=== PATIENT | female | born 1955 | race Caucasian/White ===

== ENCOUNTER 2017-11-22 08:59 | Outpatient (CLI) | payer BC | END 2017-11-22 09:00 | disposition home or self-care (01) | LOC: BICMAMMO 08:59 | PROVIDERS: ATTEND Family Medicine | DX: Z12.31 Encounter for screening mammogram for malignant neoplasm of breast (principal); Z13.820 Encounter for screening for osteoporosis; R92.1 Mammographic calcification found on diagnostic imaging of breast | CPT/HCPCS: 77063; 77067; 77080 ==

== ENCOUNTER 2018-03-25 18:45 | Emergency (ER) | payer BC ==
[2018-03-25] MEDS ORDERED: Prochlorperazine 10 MG/2 ML VIAL ONE (19:37)
[2018-03-25] MEDS ORDERED: Oseltamivir 75 MG CAP ONE (19:53)
[2018-03-25] MEDS ORDERED: Ketorolac Tromethamine 30 MG/ML VIAL ONE (20:22)
[2018-03-25] MEDS ORDERED: Ondansetron ODT 4 MG TAB ONE (20:43)
== END 2018-03-25 20:52 | disposition home or self-care (01) ==
LOC: SCSER 18:45
DX: J11.1 Influenza due to unidentified influenza virus with other respiratory manifestations (principal); M06.9 Rheumatoid arthritis, unspecified; Z79.899 Other long term (current) drug therapy
CPT/HCPCS: 87081; 87430; 87804; 96372; J0780; J1885; Q0162

== ENCOUNTER 2018-12-26 13:29 | Outpatient (CLI) | payer BC ==
--- NOTE | 2018-12-26 14:35 | MMO ---
Bilateral MAMMO Bilat Screen [facility]. CLINICAL HISTORY: Patient is 63 years old and is seen for screening. The patient has no family history of breast cancer. The patient has no personal history of cancer. VIEWS: The views performed were: bilateral craniocaudal with tomosynthesis and bilateral mediolateral oblique with tomosynthesis. FILMS COMPARED: The present examination has been compared to prior imaging studies performed at [facility] on 05/18/2013, 06/03/2014, 12/12/2015 and 11/22/2017. This study has been interpreted with the assistance of computer-aided detection. MAMMOGRAM FINDINGS: The breasts are heterogeneously dense, which could obscure a lesion on mammography. There are benign appearing calcifications seen in both breasts. There are no suspicious masses, suspicious calcifications, or new areas of architectural distortion. IMPRESSION: THERE IS NO MAMMOGRAPHIC EVIDENCE OF MALIGNANCY. A ROUTINE FOLLOW-UP MAMMOGRAM IN 1 YEAR IS RECOMMENDED. THE RESULTS OF THIS EXAM WERE SENT TO THE PATIENT. ACR BI-RADS Category 2 - Benign finding MAMMOGRAPHY NOTE: 1. A negative mammogram report should not delay a biopsy if a dominant of clinically suspicious mass is present. 2. Approximately 10% to 15% of breast cancers are not detected by mammography. 3. Adenosis and dense breasts may obscure an underlying neoplasm. Reported by: PIEDAD DAVENPORT MD Electonically Signed: [id number]
== END 2018-12-26 13:30 | disposition home or self-care (01) ==
LOC: BICMAMMO 13:29
PROVIDERS: ATTEND Family Medicine
DX: Z12.31 Encounter for screening mammogram for malignant neoplasm of breast (principal)
CPT/HCPCS: 77063; 77067

== ENCOUNTER 2019-11-16 09:57 | Inpatient (IN) | payer BC, OTHER ==
[2019-11-16] MEDS ORDERED: Morphine 4 MG/ML VIAL ONE ×2 (10:51→12:53)
[2019-11-16] MEDS ORDERED: Ondansetron PF 4 MG/2 ML Vial ONE (10:51)
[2019-11-16 11:05] LABS: #Eosinphils 0.1 thou/uL (0.0-0.7); #Lymphocytes 1.6 thou/uL (1.20-3.40); #Monocytes 1.9 thou/uL (0.11-0.59); #Neutrophils 12.9 thou/uL (1.40-6.50); %Basophils 0.2 % (0.0-1.0); %Eosinophils 0.6 % (0.0-10.0); %Lymphocytes 9.5 % (21.0-51.0); %Monocytes 11.7 % (0.0-10.0); %Neutrophils 78.1 % (42.0-75.0); Mean Corpuscular HGB CONC 31.4 g/dL (32.0-36.0); Mean Corpuscular Hemoglobin 28.7 pg (27.0-31.0); Mean Corpuscular Volume 91.5 fL (78.0-98.0); Mean Platelet Volume 8.8 fL (7.4-10.4); Platelet Count 338 thou/uL (130-400); RBC Distribution Width 12.9 % (11.5-14.5); Red Blood Cell (RBC) Count 4.16 mill/uL (4.20-5.40); White Blood Cell (WBC) Count 16.5 thou/uL (4.8-10.8)
--- NOTE | 2019-11-16 11:26 | CT ---
CT ABDOMEN PELVIS WITH IV CONTRAST: HISTORY: left lower quadrant abdominal pain COMPARISON: None FINDINGS: The lung bases are unremarkable. A small hiatal hernia is present. There is a 6 mm low-density lesion in the left lobe of the liver and a punctate low-density lesion in the right lobe of the liver, too small to characterize, likely cysts. No calcified gallstones are seen. The spleen, pancreas, adre nal glands and kidneys are normal. No free air, free fluid or lymphadenopathy seen in the abdomen or pelvis. There is colonic diverticul osis. There is thickening of a segment of the colon in the left lower quadrant with pericolonic inflammatory changes. No abnormally loculated fluid collection is seen to suggest abscess formation. There are fluid-filled small bowel loops which are prominent but not abnormally dilated. There are va scular calcifications without evidence of aneurysmal dilatation of the abdominal aorta. There are degenerative changes in the spine. IMPRESSION: Colonic Diverticulitis in the left lower quadrant without evidence of abscess formation
[2019-11-16 11:36] LABS: ALT (SGPT) 10 U/L (8-55); AST (SGOT) 13 U/L (5-34); Albumin 4.3 g/dL (3.4-4.8); Alkaline Phosphatase 64 U/L (40-110); Anion Gap 17 mmol/L (10-20); BUN (Urea Nitrogen) 6 mg/dL (9.8-20.1); Bilirubin, Total 0.6 mg/dL (0.2-1.2); Calc. Creatinine Clearance 0 mL/min (70-130); Calcium 9.5 mg/dL (7.8-10.44); Carbon Dioxide 22 mmol/L (23-31); Chloride 100 mmol/L (98-107); Estimated GFR-MDRD 85; Globulin 3.4 g/dL (2.4-3.5); Glucose 89 mg/dL (80-115); Lipase 37 U/L (8-78); Potassium 4.1 mmol/L (3.5-5.1); Protein, Total 7.7 g/dL (6.0-8.3); Sodium 135 mmol/L (136-145)
[2019-11-16 11:40] LABS: Bilirubin Negative (Negative); Blood, Urine Negative (Negative); Clarity Clear (Clear); Glucose, Urine (Dipstick) Normal (Negative); Ketone, Urine Negative (Negative); Leukocyte Negative Leu/uL (Negative); Nitrite Negative (Negative); Protein, Urine (Dipstick) 10 mg/dL (Neg-Trace); Specific Gravity, Urine 1.021 (1.002-1.036); Urobilinogen Normal mg/dL (Less than 2); pH, Urine 7.5 (5.0-9.0)
[2019-11-16] MEDS ORDERED: Piperacillin/Tazobactam 4.5 GM VIAL ONE (12:43)
--- NOTE | 2019-11-16 13:26 | PDOC.HHP ---
Hospitalist HPI - History of Present Illness Abdominal pain History of Present Illness: PCP: Dr. Li The patient is a 64-year-old female with a past medical history significant for diverticulitis and rheumatoid arthritis that presents to the ER for the above complaint. The patient reports having abdominal pain x 2-3 weeks, located to her left lower quadrant, described as cramping, exacerbated with eating and relieved by nothing. First, she went to [facility] ER, had general labs, which she says were unremarkable. Since her symptoms were consistent with previous diverticulits episodes, she was discharged on Cipro and Flagyl. Immediately after leaving [facility] ER, she went over to [facility] ER because she wanted a CT scan of her abdomen. She says it showed she had diverticulitis. She says she took entire course of ciprofloxacin a flagyl without resolution of her symptoms. Therefore, she went to see her dyed yarn operator, Dr. Yang. He started her on amoxicillin. She completed the entire course of amoxicillin over the past week, again without resolution of symptoms. Today, she presents for worsening lower left abdominal pain with associated nausea and diarrhea. She denies any hematochezia. She reports chills, but denies fever. She has no chest pain, heart palpitations, shortness of breath. She has no other complaints at this time. ED Course: VITAL SIGNS SatNov 16, 2019 09:58 RAMON Burr Denna Temp: 98.6 (Oral), Time: 11/16/2019 09:58. VITAL SIGNS SatNov 16, 2019 10:00 RAMON Burr Denna BP: 119/72, Pulse: 79, Resp: 16, Pain: 8, O2 sat: 98 on (Room Air), Time: 2019 10:00. VITAL SIGNS SatNov 16, 2019 11:27 RAMON Carrasquillo Cassie Pain: 3, Time: 11/16/2019 11:27. VITAL SIGNS SatNov 16, 2019 11:27 RAMON Carrasquillo Cassie BP: 122/73, Pulse: 85, Resp: 16, Pain: 3, O2 sat: 99 on (Room Air), Time: 2019 11:27. VITAL SIGNS SatNov 16, 2019 12:07 RAMON Carrasquillo Cassie BP: 126/74, Pulse: 78, Resp: 16 (Non-Labored), Pain: 5, O2 sat: 97 on (Room Air) , Time: 11/16/2019 12:07. Medication administration: morphine injection 4 mg IV Push Given 12:58 11/16/2019 Zosyn 4.5 g IV Piggy Back Given 12:50 11/16/2019 morphine injection 4 mg IV Push Given 11:04 11/16/2019 ondansetron HCl intravenous 4 mg IV Push Given 10:59 11/16/2019 sodium chloride 0.9 % intravenous 1 L IV Fluid Infusion Given 10:56 11/16/2019 Hospitalist ROS - Review of Systems Constitutional: reports: chills. denies: fever Respiratory: denies: cough, shortness of breath, hemoptysis Cardiovascular: denies: chest pain, palpitations, edema Gastrointestinal: reports: nausea, vomiting (X1 episode, when initiating Flagyl and Cipro.), abdominal pain (Lower left quadrant), diarrhea (Denies hematochezia ). denies: hematochezia Genitourinary: denies: dysuria, frequency, hematuria Neurological: denies: weakness, confusion All other systems reviewed; all pertinent +/- noted in HPI/Subj - Medication Medications: leflunomide SatNov 16, 2019 10:04 RAMON Carrasquillo Cassie tablet : Strength - 20 mg : ORAL Patient Dose: 20 mg once a day. Plaquenil SatNov 16, 2019 10:05 RAMON Carrasquillo Cassie tablet : Strength - 200 mg : ORAL Patient Dose: 200 mg Oral ONCE.one on the first day and two tabs the next day ( EOD dosing). Carlos Enrique SatNov 16, 2019 10:06 RAMON Carrasquillo Cassie tablet,delayed release (DR/EC) : Strength - 5 mg : ORAL Patient Dose: 5 mg Oral once a day (in the morning). Tylenol Arthritis SatNov 16, 2019 10:06 RAMON Carrasquillo Cassie tablet extended release : Strength - 650 mg : ORAL Patient Dose: 2-4 tab(s).2 in the morning and 2 in the afternoon. Allergies: NKDA Hospitalist History - Past Medical History Source: patient, RN notes reviewed Other Medical History: MEDICAL HISTORY Notes: RA. Diverticulitis. Reviewed with patient on 11/16/19. FEMALE SURGICAL HISTORY APPY. Reviewed with patient on 11/16/19. PSYCHIATRIC HISTORY No previous psychiatric history. Reviewed with patient on 11/16/19. SOCIAL HISTORY Patient denies alcohol use, Patient denies drug use, Patient has no smoking history. Lives with her at home. She is retired. She is fully independent. Reviewed with patient on 11/16/19. FAMILY HISTORY: Contributory for colon cancer, rheumatoid arthritis. - Exam General Appearance: NAD, awake alert Eye: anicteric sclera ENT: normocephalic atraumatic Neck: supple, symmetric Heart: RRR, no murmur, no gallops, no rubs, normal peripheral pulses Respiratory: CTAB, no wheezes, no rales, no ronchi, normal chest expansion, no tachypnea Gastrointestinal: soft, no bruit, no guarding, no rigidity (No rebound), tender to palpation (Mild to left lower quadrant). negative: normal bowel sounds ( Hyperactive bowel sounds throughout) Extremities: no edema Skin: no rashes Neurological: normal sensation to touch, no weakness, no focal deficits, no new deficit Musculoskeletal: normal tone, normal strength Psychiatric: normal affect, A&O x 3 Hospitalist Results - Labs Result Diagrams: 11/16/19 10:28 11/16/19 10:28 Lab results: WBC 16.5 thou/uL (4.8-10.8) H 11/16/19 10:28 Hgb 12.0 g/dL (12.0-16.0) 11/16/19 10:28 Hct 38.1 % (36.0-47.0) 11/16/19 10:28 MCV 91.5 fL (78.0-98.0) 11/16/19 10:28 Plt Count 338 thou/uL (130-400) 11/16/19 10:28 Neutrophils % 78.1 % (42.0-75.0) H 11/16/19 10:28 Sodium 135 mmol/L (136-145) L 11/16/19 10:28 Potassium 4.1 mmol/L (3.5-5.1) 11/16/19 10:28 Chloride 100 mmol/L (98-107) 11/16/19 10:28 Carbon Dioxide 22 mmol/L (23-31) L 11/16/19 10:28 BUN 6 mg/dL (9.8-20.1) L 11/16/19 10:28 Creatinine 0.69 mg/dL (0.6-1.1) 11/16/19 10:28 Glucose 89 mg/dL (80-115) 11/16/19 10:28 Calcium 9.5 mg/dL (7.8-10.44) 11/16/19 10:28 Total Bilirubin 0.6 mg/dL (0.2-1.2) 11/16/19 10:28 AST 13 U/L (5-34) 11/16/19 10:28 ALT 10 U/L (8-55) 11/16/19 10:28 Alkaline Phosphatase 64 U/L (40-110) 11/16/19 10:28 Serum Total Protein 7.7 g/dL (6.0-8.3) 11/16/19 10:28 Albumin 4.3 g/dL (3.4-4.8) 11/16/19 10:28 Lipase 37 U/L (8-78) 11/16/19 10:28 Urine Ketones Negative mg/dL (Negative) 11/16/19 10:55 Urine Blood Negative (Negative) 11/16/19 10:55 Urine Nitrite Negative (Negative) 11/16/19 10:55 Ur Leukocyte Esterase Negative Reed/uL (Negative) 11/16/19 10:55 - Radiology Interpretation CT scan - abdomen Status: report reviewed by me Additional Comment: Colonic Diverticulitis in the left lower quadrant without evidence of abscess formation. Hospitalist H&P A/P - Problem (1) Diverticulitis Code(s): K57.92 - DVTRCLI OF INTEST, PART UNSP, W/O PERF OR ABSCESS W/O BLEED Status: Acute (2) Rheumatoid arthritis Code(s): M06.9 - RHEUMATOID ARTHRITIS, UNSPECIFIED Status: Acute - Plan Plan: 64/F with past medical history of diverticulitis and rheumatoid arthritis presents for diverticulitis and failure on outpatient oral antibiotics. We will admit to medical, inpatient status. Expected length of stay greater than 2 [address] #Diverticulitis CT abdomen pelvis positive colonic diverticulitis of the left lower quadrant without evidence of abscess formation. WBC 16.5, stable vital signs, afebrileno concern for sepsis. Continue Zosyn IV piggyback Consult GI and dietary Clear liquid diet advance as tolerated IV fluids, analgesics, antiemetics #Rheumatoid arthritis Appears stable. Hold home dose of leflunomide per patient request. Restart home Plaquenil every other day dosing. Restart home Carlos Enrique (prednisone) nightly. Restart home Tylenol arthritis twice daily dosing. Lovenox for DVT prophylaxis. Protonix for GI prophylaxis. Full code. AUBREY is her Rene Florence at [phone]. Discussed case with Dr. Hobbs.
[2019-11-16] MEDS ORDERED: Ondansetron PF 4 MG/2 ML Vial IVP PRN (13:31)
[2019-11-16] MEDS ORDERED: Ondansetron ODT 4 MG TAB PO PRN (13:31)
[2019-11-16] MEDS ORDERED: Acetaminophen 325 MG TAB PO PRN (13:31)
[2019-11-16] MEDS ORDERED: Morphine 4 MG/ML VIAL SLOW IVP PRN (13:36)
[2019-11-16] MEDS ORDERED: Pantoprazole 40 MG VIAL IVP SCH (13:45)
[2019-11-16] MEDS: Piperacillin/Tazobactam 4.5 GM in Sodium Chloride 0.9% 100 ML IVPB SCH ×2 (15:13→20:40)
[2019-11-16] MEDS: Sodium Chloride 0.9% 1,000 ML IV SCH (15:36)
[2019-11-16] MEDS: Saccharomyces boulardii 250 MG CAP PO SCH (20:38)
[2019-11-16] MEDS: Hydroxychloroquine Sulfate 200 MG TAB PO SCH (20:38)
[2019-11-16] MEDS: predniSONE 5 MG TAB PO SCH (20:38)
[2019-11-16] MEDS: Acetaminophen ER (8hr) 650 MG TAB PO SCH (20:52)
--- NOTE | 2019-11-17 00:52 | CON ---
DATE OF CONSULTATION: 11/16/2019 CHIEF COMPLAINT: Abdominal pain. HISTORY OF PRESENT ILLNESS: Ms. Florence is a 64-year-old woman who presents back to the emergency room with abdominal pain. She has had diverticulitis 3or 4 times over the years with 5-7 years between episodes. She has had to go to the hospital a couple of times to get these under control. Two weeks ago, she had onset of diarrhea and some left lower quadrant abdominal pain. Her friend that she was with also had some similar diarrhea and abdominal cramping. She thought she was just getting a stomach bug at first. Her pain intensified, however, so she went on to the Urgent Care and was started on ciprofloxacin and metronidazole for suspected diverticulitis and then she went to the [facility] ER at that same time. She had a CT scan performed that reportedly confirmed the diagnosis of diverticulitis. She completed the seven-day course of ciprofloxacin and metronidazole, but had a lot of trouble taking the antibiotics due to nausea. She did finish them all and saw Dr. Yang in the office at the end of her antibiotic course and due to persistent symptoms and intolerance of the ciprofloxacin and metronidazole, she was started on Augmentin. She was given a 14-day course of Augmentin, however, only a week into that course, her pain seems to be getting worse rather than better and she came on the emergency room for further care. CT scan was repeated today and again evidence of diverticulitis is seen with an inflammatory changes and thickening of sigmoid colon in the left lower quadrant. She has not had fever, however, white blood cell count was found to be elevated. She had a stool culture back on 11/10/2019, which was normal. Campylobacter and shiga toxins were negative. C. diff antigen and toxins were negative. Ova and parasites were negative. PAST MEDICAL HISTORY: Recurrent diverticulitis, rheumatoid arthritis, for which she has been on leflunomide, Plaquenil and prednisone. PAST SURGICAL HISTORY: Last colonoscopy was 2014 in [place]. This was negative except for diverticulosis. She had a colonoscopy in [address] Yang here in [facility], which was also negative except for diverticulosis. She has had appendectomy. FAMILY HISTORY: Positive for colon cancer in her mother and her maternal great grandmother and her paternal grandmother. SOCIAL HISTORY: No alcohol, drugs, or smoking history. ALLERGIES: NO KNOWN DRUG ALLERGIES. MEDICATIONS: Prior to admission: 1. Prednisone 5 mg daily. 2. Leflunomide 20 mg daily. 3. Hydroxychloroquine and omeprazole 40 mg daily. CURRENT INPATIENT MEDICATIONS: Include: 1. Enoxaparin. 2. Hydroxychloroquine. 3. Morphine. 4. Pantoprazole. 5. Zosyn. 6. Prednisone. REVIEW OF SYSTEMS: Negative x10 systems reviewed except as stated in the history of present illness. PHYSICAL EXAMINATION: VITAL SIGNS: Temperature 98.3, pulse 85, blood pressure 107/68. GENERAL: She is in no acute distress. Alert and oriented x3. EYES: Have no scleral icterus. Oropharynx is clear without lesions. No cervical or supraclavicular lymphadenopathy. LUNGS: Clear to auscultation bilaterally. HEART: Regular rate and rhythm without murmur. ABDOMEN: Soft, tender focally in the left lower quadrant. Bowel sounds are present. No guarding on light palpation. EXTREMITIES: No lower extremity edema. LABORATORY DATA: White blood cell count 16.5, hemoglobin 12.0, platelets 338, creatinine 0.69, bilirubin 0.6, AST 13, ALT 10, alkaline phosphatase 64, albumin 4.3, lipase 37. IMPRESSION: 1. Recurrent acute uncomplicated diverticulitis. She did not respond to a week course of ciprofloxacin and metronidazole combination, which also has significant side effects of nausea and then followed immediately with a week of Augmentin. Still, her white blood cell count is elevated at 16.5 with persistent inflammatory changes by CT scan. There are no signs of abscess or other complicated disease. I think that she is just going to take longer to respond to antibiotics and ultimately require IV antibiotics in light of her previously difficult to treat diverticulitis and chronic immune suppression. She has been able to go 5-7 years between diverticulitis attacks and therefore likely she can still be continued to be managed with antibiotic therapy as needed. However, in the future will likely needed to be treated early and she was advised to seek medical attention early on the onset of symptoms and also for longer duration course of antibiotics. 2. Family history of colon cancer in her mother and then also paternal grandparent and maternal great grandparent. Her last colonoscopy was 5 years ago. Colonoscopy can be performed after resolution of this acute diverticulitis attack. 3. Rheumatoid arthritis on immunosuppression including prednisone. RECOMMENDATIONS: 1. Agree with Zosyn IV. After she has had adequate response after few days of Zosyn, then she can likely transition back to complete a course of Augmentin. She did not tolerate ciprofloxacin and metronidazole well due to nausea. She does not drink alcohol. 2. If her pain is doing better tomorrow, she should be ready to advance her diet in the morning. 3. Follow up with Dr. Yang in the office in a month. At that time, colonoscopy be can be scheduled for around 2 months out and we can continue to assess her response of this acute diverticulitis attack to treatment. 4. Regarding the diarrhea. Her stool studies are negative. It is atypical that this episode of diverticulitis did start with diarrhea first. Still, there is no evidence that this is an infectious colitis and it is unlikely that this is an inflammatory colitis or ischemic colitis. I would continue treatment as stated above. 5. I will add a probiotic. 6. GI will continue to follow this. Job ID: [id number]
[2019-11-17] MEDS: Sodium Chloride 0.9% 1,000 ML IV SCH ×2 (03:01→09:45)
[2019-11-17] MEDS: Piperacillin/Tazobactam 4.5 GM in Sodium Chloride 0.9% 100 ML IVPB SCH ×3 (05:34→22:16)
[2019-11-17 05:59] LABS: #Eosinphils 0.1 thou/uL (0.0-0.7); #Lymphocytes 1.8 thou/uL (1.20-3.40); #Monocytes 1.1 thou/uL (0.11-0.59); #Neutrophils 9.9 thou/uL (1.40-6.50); %Basophils 0.2 % (0.0-1.0); %Eosinophils 0.5 % (0.0-10.0); %Lymphocytes 13.6 % (21.0-51.0); %Monocytes 8.5 % (0.0-10.0); %Neutrophils 77.2 % (42.0-75.0); Hemoglobin 10.5 g/dL (12.0-16.0); Mean Corpuscular Hemoglobin 29.5 pg (27.0-31.0); Mean Corpuscular Volume 92.2 fL (78.0-98.0); Mean Platelet Volume 7.7 fL (7.4-10.4); Platelet Count 277 thou/uL (130-400); RBC Distribution Width 12.7 % (11.5-14.5); Red Blood Cell (RBC) Count 3.54 mill/uL (4.20-5.40); White Blood Cell (WBC) Count 12.8 thou/uL (4.8-10.8)
[2019-11-17 06:24] LABS: CRP (Inflammatory) 8.93 mg/dL (= or < 0.5)
[2019-11-17 06:29] LABS: Anion Gap 13 mmol/L (10-20); BUN (Urea Nitrogen) 4 mg/dL (9.8-20.1); Calc. Creatinine Clearance 0 mL/min (70-130); Calcium 7.9 mg/dL (7.8-10.44); Carbon Dioxide 22 mmol/L (23-31); Chloride 107 mmol/L (98-107); Estimated GFR-MDRD Greater than 90; Glucose 115 mg/dL (80-115); Magnesium 1.8 mg/dL (1.6-2.6); Potassium 3.6 mmol/L (3.5-5.1); Sodium 138 mmol/L (136-145)
--- NOTE | 2019-11-17 07:44 | PDOC.HOSPP ---
- Subjective Encounter Date: 11/17/19 Encounter Time: 07:42 Subjective: Patient seen and examined. No new complaints. No overnight events. Reports feeling much better. Abdominal pain improved significantly, 2/10 to LLQ. Says she still feels a little bloated. Denies any nausea, vomiting or diarrhea. No Chest pain, light headedness or SOB. She is afebrile. - Objective Vital Signs & Weight: Vital Signs (12 hours) Temp Pulse Resp BP Pulse Ox 11/17/19 04:00 97.8 F 62 20 93 L 11/17/19 00:00 98.1 F 68 20 90/57 L 93 L 11/16/19 20:00 98.3 F 80 18 98/61 98 Weight Weight 4.938 oz Result Diagrams: 11/17/19 05:42 11/17/19 05:42 Hospitalist ROS - Review of Systems Constitutional: denies: fever, chills Respiratory: denies: shortness of breath, hemoptysis Cardiovascular: denies: chest pain, palpitations Gastrointestinal: reports: abdominal pain (mild, improved since admission). denies: nausea, vomiting, diarrhea, melena, hematochezia Genitourinary: denies: dysuria Neurological: denies: weakness, incoordination All other systems reviewed; all pertinent +/- noted in HPI/Subj - Medication Medications: Active Medications Generic Name Dose Route Start Last Admin Trade Name Freq PRN Reason Stop Dose Admin Acetaminophen 650 mg 11/16/19 21:00 11/16/19 20:52 Tylenol Er (8hr Arthritis Pain) PO 650 mg BID MELISSA Administration Hydroxychloroquine Sulfate 400 mg 11/16/19 21:00 11/16/19 20:38 Plaquenil PO 400 mg Q2D@2100 MELISSA Administration Sodium Chloride 1,000 mls @ 100 mls/hr 11/16/19 13:45 11/17/19 03:01 Normal Saline 0.9% IV 1,000 mls .Q10H MELISSA Administration Piperacillin Sod/Tazobactam 100 mls @ 200 mls/hr 11/16/19 14:00 11/17/19 05: 34 Sod 4.5 gm/ Sodium Chloride IVPB 100 mls Q8HR MELISSA Administration Morphine Sulfate 4 mg 11/16/19 13:36 11/16/19 15:37 Morphine SLOW IVP 4 mg Q3H PRN Administration Pain Ondansetron HCl 4 mg 11/16/19 13:31 11/16/19 21:20 Zofran IVP 4 mg Q6H PRN Administration Nausea/Vomiting Prednisone 5 mg 11/16/19 21:00 11/16/19 20:38 Prednisone PO 5 mg HS MELISSA Administration Saccharomyces Boulardii 250 mg 11/16/19 21:00 11/16/19 20:38 Florastor PO 250 mg HS MELISSA Administration - Exam General Appearance: NAD, awake alert Heart: RRR, no murmur, no gallops, no rubs, normal peripheral pulses Respiratory: CTAB, no wheezes, no rales, no ronchi, normal chest expansion Gastrointestinal: soft, non-tender, normal bowel sounds, no bruit, no guarding, no rigidity Psychiatric: normal affect, A&O x 3 Hosp A/P (1) Diverticulitis Code(s): K57.92 - DVTRCLI OF INTEST, PART UNSP, W/O PERF OR ABSCESS W/O BLEED Status: Acute (2) Rheumatoid arthritis Code(s): M06.9 - RHEUMATOID ARTHRITIS, UNSPECIFIED Status: Acute - Plan # Diverticulits, uncomplicated WBCs trending down GI recs appreciated Discharge on oral Augmentin f/u Dr. Yang 1 month schedule colonoscopy approximately 2 months Continue Zosyn IVPB Advance diet as tolerated Consider stopping IV fluids later this afternoon
[2019-11-17] MEDS: Acetaminophen ER (8hr) 650 MG TAB PO SCH ×2 (08:01→22:30)
[2019-11-17] MEDS ORDERED: Enoxaparin Sodium 40 MG/0.4 ML SYRINGE SC SCH (09:00)
[2019-11-17] MEDS ORDERED: Pantoprazole 40 MG VIAL IVP SCH (09:00)
[2019-11-17 11:46] VITALS: BMI 28.2
[2019-11-17 13:03] LABS: SARS-CoV-2 MS2 Positive; SARS-CoV-2 N Gene Negative; SARS-CoV-2 S Gene Negative; SARS-CoV-2 by NAA Not Detected (NotDetected); SARS-CoV-2 orf1ab Negative
--- NOTE | 2019-11-17 13:36 | PRG ---
DATE OF SERVICE: 11/17/2019 GI INPATIENT DAILY PROGRESS NOTE. SUBJECTIVE: Ms. Florence says she is feeling much better today than yesterday. Her abdominal pain has significantly improved. She has not required pain medicine today. She did have a little bit of recurrence of left lower quadrant and right lower quadrant discomfort after breakfast and lunch, but it is not as severe. She has not had any nausea or vomiting. OBJECTIVE: VITAL SIGNS: Temperature 97.5, pulse 55, blood pressure 101/66, 98% oxygen saturation on room air. GENERAL: No acute distress. HEART: Regular rate and rhythm. LUNGS: Clear to auscultation bilaterally. ABDOMEN: Bowel sounds are present. Soft. Some tenderness to palpation in the left lower quadrant, but no guarding or rebound tenderness. EXTREMITIES: No peripheral edema. LABORATORY STUDIES: WBC 12.8, hemoglobin 10.5, platelets 277. Sodium 138, potassium 3.6, BUN 4, creatinine 0.63. CRP elevated to 8.93. IMAGING STUDIES: CT of the abdomen and pelvis on admission yesterday showed left lower quadrant diverticulitis with no evidence of abscess, no fluid collection; no free air, free fluid or lymphadenopathy. ASSESSMENT AND PLAN: Recurrent diverticulitis, uncomplicated, severe, with failure of outpatient oral antibiotic therapy. The patient has had dramatic symptomatic improvement after starting Zosyn over the past [address] with [address]. Blake's recommendation to continue the IV Zosyn for at least 2 to 3 days, prior to transitioning back to Augmentin at hospital discharge. Continue the IV Zosyn for now. She is advancing her diet and doing pretty well. She can continue to advance her diet as tolerated. Plan will be to follow up with her GI physician Dr. Yang as an outpatient and likely repeat outpatient colonoscopy in a couple of months. Job ID: [id number]
--- NOTE | 2019-11-17 13:58 | PDOC.BPN ---
- Brief Progress Note Encounter Date: 11/16/19 Encounter Time: 16:00 Patient is a 64-year-old female with diverticulosis with episode of diverticulitis in the past presents with worsening abdominal pain of 2 to 3 weeks duration. She was recently diagnosed with diverticulitis and completed 1 week course of Cipro and Flagyl followed by another course of amoxicillin. Her pain continued to worsen for which she presented to the emergency room. She received IV morphine total of 8 mg in the emergency room with some symptomatic relief. Past medical history was reviewed. On examination patient has tenderness to palpation in the lower quadrants. Labs were reviewed. Patient was found to have acute with the colitis on the CT. She probably has suspected sepsis as well due to elevated leukocytosis. IV Zosyn has been started. We will continue Plaquenil and prednisone. I agree with the note, assessment and plan by the nurse practitioner. Plan discussed with the patient who agrees with the above plan of care.
--- NOTE | 2019-11-17 21:28 | PDOC.HOSPP ---
- Subjective Encounter Date: 11/17/19 Encounter Time: 12:30 Subjective: Patient seen and examined for acute diverticulitis. Started on regular diet today. Abdominal pain improving. No fever or chills. No nausea or diarrhea. - Objective Vital Signs & Weight: Vital Signs (12 hours) Temp Pulse Resp BP BP Pulse Ox 11/17/19 19:39 97.9 F 66 18 110/74 96 11/17/19 17:01 98.0 F 68 18 99/61 96 11/17/19 11:44 97.5 F L 55 L 18 101/66 98 Weight Admit Weight 4.944 oz Weight 149 lb 6.4 oz I&O: 11/16/19 11/17/19 11/18/19 06:59 06:59 06:59 Intake Total 1500 Balance 1500 Result Diagrams: 11/17/19 05:42 11/17/19 05:42 Additional Labs: Laboratory Tests 11/17/19 05:42 C-Reactive Protein 8.93 H Radiology Reviewed by me: Yes (CT abdomenacute diverticulitis) Hospitalist ROS - Review of Systems Respiratory: denies: cough, dry, shortness of breath, hemoptysis, SOB with excertion, pleuritic pain, sputum, wheezing, other Cardiovascular: denies: chest pain, palpitations, orthopnea, paroxysmal noc. dyspnea, edema, light headedness, other - Medication Medications: Active Medications Generic Name Dose Route Start Last Admin Trade Name Freq PRN Reason Stop Dose Admin Acetaminophen 650 mg 11/16/19 21:00 11/17/19 08:01 Tylenol Er (8hr Arthritis Pain) PO 650 mg BID MELISSA Administration Hydroxychloroquine Sulfate 400 mg 11/16/19 21:00 11/16/19 20:38 Plaquenil PO 400 mg Q2D@2100 MELISSA Administration Piperacillin Sod/Tazobactam 100 mls @ 200 mls/hr 11/16/19 14:00 11/17/19 14: 00 Sod 4.5 gm/ Sodium Chloride IVPB 100 mls Q8HR MELISSA Administration Morphine Sulfate 4 mg 11/16/19 13:36 11/16/19 15:37 Morphine SLOW IVP 4 mg Q3H PRN Administration Pain Ondansetron HCl 4 mg 11/16/19 13:31 11/16/19 21:20 Zofran IVP 4 mg Q6H PRN Administration Nausea/Vomiting Prednisone 5 mg 11/16/19 21:00 11/16/19 20:38 Prednisone PO 5 mg HS MELISSA Administration Saccharomyces Rosendodii 250 mg 11/16/19 21:00 11/16/19 20:38 Florastor PO 250 mg HS MELISSA Administration - Exam General Appearance: NAD Heart: RRR, no gallops Respiratory: no wheezes, no ronchi Gastrointestinal: non-distended, normal bowel sounds, no guarding, no rigidity, tender to palpation (In lower quadrant) Hosp A/P (1) Acute diverticulitis Code(s): K57.92 - DVTRCLI OF INTEST, PART UNSP, W/O PERF OR ABSCESS W/O BLEED Status: Acute (2) Sepsis Code(s): A41.9 - SEPSIS, UNSPECIFIED ORGANISM Status: Suspected (3) Hyponatremia Code(s): E87.1 - HYPO-OSMOLALITY AND HYPONATREMIA Status: Acute (4) Rheumatoid arthritis Code(s): M06.9 - RHEUMATOID ARTHRITIS, UNSPECIFIED Status: Chronic - Plan DVT proph w/SCDs 11/16 Gastroenterology input appreciated. Continue IV Zosyn for 2-3 days per GI recommendation. Discontinue IV fluids since patient is tolerating po. We will discontinue subcu Lovenox since patient is ambulating in the hallway change Protonix to po. Continue Plaquenil with prednisone at home dose. WBC improving. Recheck CBC in a.m.
[2019-11-17] MEDS: predniSONE 5 MG TAB PO SCH (22:16)
[2019-11-17] MEDS: Hydroxychloroquine Sulfate 200 MG TAB PO SCH (22:16)
[2019-11-17] MEDS: Saccharomyces boulardii 250 MG CAP PO SCH (22:16)
[2019-11-18] MEDS: Piperacillin/Tazobactam 4.5 GM in Sodium Chloride 0.9% 100 ML IVPB SCH ×3 (06:00→21:04)
[2019-11-18 07:05] LABS: #Basophils 0.1 thou/uL (0.0-0.2); #Eosinphils 0.2 thou/uL (0.0-0.7); #Lymphocytes 1.2 thou/uL (1.20-3.40); #Monocytes 0.5 thou/uL (0.11-0.59); #Neutrophils 5.1 thou/uL (1.40-6.50); %Basophils 0.9 % (0.0-1.0); %Eosinophils 2.3 % (0.0-10.0); %Monocytes 6.7 % (0.0-10.0); %Neutrophils 73.1 % (42.0-75.0); Hemoglobin 10.6 g/dL (12.0-16.0); Mean Corpuscular HGB CONC 31.8 g/dL (32.0-36.0); Mean Corpuscular Hemoglobin 29.6 pg (27.0-31.0); Mean Corpuscular Volume 92.9 fL (78.0-98.0); Mean Platelet Volume 7.9 fL (7.4-10.4); Platelet Count 282 thou/uL (130-400); RBC Distribution Width 12.6 % (11.5-14.5); Red Blood Cell (RBC) Count 3.57 mill/uL (4.20-5.40)
[2019-11-18] MEDS: Acetaminophen ER (8hr) 650 MG TAB PO SCH ×2 (09:20→21:03)
--- NOTE | 2019-11-18 12:41 | PRG ---
DATE OF SERVICE: 11/18/2019 SUBJECTIVE: The patient had fairly significant abdominal pain last night, but reportedly is doing much better this morning. She ambulated. There is no nausea or vomiting. PHYSICAL EXAMINATION: VITAL SIGNS: Temperature is 97.6, blood pressure 119/77, and pulse is 66. GENERAL: She is alert, conversant without distress. HEENT: Shows anicteric sclerae. CV: Shows normal S1 and S2. Regular rate and rhythm. CHEST: Shows breath sounds clear to auscultation. ABDOMEN: Soft. No distention. No tympany. She has active bowel sounds. There is still mild to moderate left lower quadrant tenderness. No appreciable organomegaly. EXTREMITIES: Show no edema. LABORATORY DATA: WBCs 7.0, hemoglobin 10.6, and platelet count of 282. ASSESSMENT: Acute uncomplicated diverticulitis, failed outpatient therapy with two different rounds of antibiotics. Clinically, she is doing better overall with resolution of leukocytosis. She is afebrile, nontoxic, with clinical improvement since admission. RECOMMENDATION: 1. Continue with IV Zosyn for at least 1 to 2 more days. 2. Continue with regular diet as she is able to tolerate. 3. No new recommendation from GI standpoint. Job ID: [id number]
--- NOTE | 2019-11-18 16:20 | PDOC.HOSPP ---
- Subjective Encounter Date: 11/18/19 Encounter Time: 10:30 Subjective: Patient seen and examined for acute diverticulitis. Abdominal pain got worse last night. Had significant nausea earlier that has slightly improved. No fever or chills reported - Objective Vital Signs & Weight: Vital Signs (12 hours) Temp Pulse Resp BP Pulse Ox 11/18/19 11:13 97.6 F 66 16 119/77 97 11/18/19 08:00 96 Weight Admit Weight 4.944 oz Weight 149 lb 6.4 oz I&O: 11/17/19 11/18/19 11/19/19 06:59 06:59 06:59 Intake Total 1500 Balance 1500 Result Diagrams: 11/18/19 04:25 11/17/19 05:42 Hospitalist ROS - Review of Systems Respiratory: denies: cough, dry, shortness of breath, hemoptysis, SOB with excertion, pleuritic pain, sputum, wheezing, other Cardiovascular: denies: chest pain, palpitations, orthopnea, paroxysmal noc. dyspnea, edema, light headedness, other - Medication Medications: Active Medications Generic Name Dose Route Start Last Admin Trade Name Freq PRN Reason Stop Dose Admin Acetaminophen 650 mg 11/16/19 21:00 11/18/19 09:20 Tylenol Er (8hr Arthritis Pain) PO 650 mg BID MELISSA Administration Hydroxychloroquine Sulfate 400 mg 11/16/19 21:00 11/16/19 20:38 Plaquenil PO 400 mg Q2D@2100 MELISSA Administration Hydroxychloroquine Sulfate 200 mg 11/17/19 21:00 11/17/19 22:16 Plaquenil PO 200 mg Q2D@2100 MELISSA Administration Piperacillin Sod/Tazobactam 100 mls @ 200 mls/hr 11/16/19 14:00 11/18/19 14:33 Sod 4.5 gm/ Sodium Chloride IVPB 100 mls Q8HR MELISSA Administration Morphine Sulfate 4 mg 11/16/19 13:36 11/16/19 15:37 Morphine SLOW IVP 4 mg Q3H PRN Administration Pain Ondansetron HCl 4 mg 11/16/19 13:31 11/16/19 21:20 Zofran IVP 4 mg Q6H PRN Administration Nausea/Vomiting Pantoprazole Sodium 40 mg 11/18/19 09:00 11/18/19 09:20 Protonix PO 40 mg DAILY MELISSA Administration Prednisone 5 mg 11/16/19 21:00 11/17/19 22:16 Prednisone PO 5 mg HS MELISSA Administration Saccharomyces Rosendodii 250 mg 11/16/19 21:00 11/17/19 22:16 Florastor PO 250 mg HS MELISSA Administration - Exam Heart: RRR, no gallops Respiratory: no wheezes, no ronchi Gastrointestinal: soft, no guarding, no rigidity, tender to palpation (In lower quadrant) Extremities: no cyanosis, no clubbing Psychiatric: A&O x 3 Hosp A/P (1) Acute diverticulitis Code(s): K57.92 - DVTRCLI OF INTEST, PART UNSP, W/O PERF OR ABSCESS W/O BLEED Status: Acute (2) Sepsis Code(s): A41.9 - SEPSIS, UNSPECIFIED ORGANISM Status: Suspected (3) Hyponatremia Code(s): E87.1 - HYPO-OSMOLALITY AND HYPONATREMIA Status: Acute (4) Rheumatoid arthritis Code(s): M06.9 - RHEUMATOID ARTHRITIS, UNSPECIFIED Status: Chronic - Plan 11/17 Case discussed with gastroenterology. Will continue IV Zosyn for now. WBC came back to normal today. Continue to advance diet as tolerated. Ambulate. Continue Plaquenil, prednisone and other medications as above. 11/16 Gastroenterology input appreciated. Continue IV Zosyn for 2-3 days per GI recommendation. Discontinue IV fluids since patient is tolerating po. We will discontinue subcu Lovenox since patient is ambulating in the hallway change Protonix to po. Continue Plaquenil with prednisone at home dose. WBC impr oving. Recheck CBC in a.m.
[2019-11-18] MEDS: Hydroxychloroquine Sulfate 200 MG TAB PO SCH (21:03)
[2019-11-18] MEDS: Saccharomyces boulardii 250 MG CAP PO SCH (21:03)
[2019-11-18] MEDS: predniSONE 5 MG TAB PO SCH (21:04)
[2019-11-19] MEDS: Piperacillin/Tazobactam 4.5 GM in Sodium Chloride 0.9% 100 ML IVPB SCH ×3 (05:30→20:16)
[2019-11-19] MEDS: Acetaminophen ER (8hr) 650 MG TAB PO SCH ×2 (10:48→20:15)
--- NOTE | 2019-11-19 17:43 | PRG ---
DATE OF SERVICE: 11/19/2019 SUBJECTIVE: Ms. Alexander is feeling better today and tolerating a soft diet, but still has some pain in the left lower quadrant. She has been up ambulating and has shown marked improvement in her pain. OBJECTIVE: VITAL SIGNS: Temperature 98.0, pulse 57, blood pressure 116/68. GENERAL: She is in no acute distress. Alert and oriented x3. LUNGS: Clear to auscultation bilaterally. HEART: Regular rate and rhythm without murmur. ABDOMEN: Soft. Mild tenderness in left lower quadrant without guarding. Bowel sounds are present. EXTREMITIES: No lower extremity edema. LABORATORY DATA: Her white blood cell count was down to 7.0 yesterday. IMPRESSION AND PLAN: 1. Recurrent acute diverticulitis. She failed 2 courses of outpatient antibiotics, but has responded well now to IV antibiotics. Given her immune suppression and prior severe episodes requiring hospitalization and failure to respond to oral antibiotics, I would like for her to get another dose of IV antibiotic tonight and tomorrow morning and then she can transition back to Augmentin to complete a 14-day course of antibiotics. 2. Anticipate discharge home tomorrow after her morning antibiotic. She can follow up with Dr. Yang or his physician sound assistant in a month. Job ID: [id number]
[2019-11-19] MEDS: predniSONE 5 MG TAB PO SCH (20:15)
[2019-11-19] MEDS: Saccharomyces boulardii 250 MG CAP PO SCH (20:15)
[2019-11-19] MEDS: Hydroxychloroquine Sulfate 200 MG TAB PO SCH (20:16)
--- NOTE | 2019-11-19 21:47 | PDOC.HOSPP ---
- Subjective Encounter Date: 11/19/19 Encounter Time: 09:30 - Objective Vital Signs & Weight: Vital Signs (12 hours) Temp Pulse Resp BP Pulse Ox 11/19/19 19:57 97.7 F 71 16 119/76 96 Weight Admit Weight 4.944 oz Weight 149 lb 6.4 oz I&O: 11/18/19 11/19/19 11/20/19 06:59 06:59 06:59 Intake Total 2525 144 2408 Balance 8085 907 1931 Result Diagrams: 11/18/19 04:25 11/17/19 05:42 Hospitalist ROS - Medication Medications: Active Medications Generic Name Dose Route Start Last Admin Trade Name Freq PRN Reason Stop Dose Admin Acetaminophen 650 mg 11/16/19 21:00 11/19/19 20:15 Tylenol Er (8hr Arthritis Pain) PO 650 mg BID MELISSA Administration Hydroxychloroquine Sulfate 400 mg 11/16/19 21:00 11/18/19 21:03 Plaquenil PO 400 mg Q2D@2100 MELISSA Administration Hydroxychloroquine Sulfate 200 mg 11/17/19 21:00 11/19/19 20:16 Plaquenil PO 200 mg Q2D@2100 MELISSA Administration Piperacillin Sod/Tazobactam 100 mls @ 200 mls/hr 11/16/19 14:00 11/19/19 20:16 Sod 4.5 gm/ Sodium Chloride IVPB 100 mls Q8HR MELISSA Administration Morphine Sulfate 4 mg 11/16/19 13:36 11/16/19 15:37 Morphine SLOW IVP 4 mg Q3H PRN Administration Pain Ondansetron HCl 4 mg 11/16/19 13:31 11/16/19 21:20 Zofran IVP 4 mg Q6H PRN Administration Nausea/Vomiting Pantoprazole Sodium 40 mg 11/18/19 09:00 11/19/19 09:14 Protonix PO 40 mg DAILY MELISSA Administration Prednisone 5 mg 11/16/19 21:00 11/19/19 20:15 Prednisone PO 5 mg HS MELISSA Administration Saccharomyces Boulardii 250 mg 11/16/19 21:00 11/19/19 20:15 Florastor PO 250 mg HS MELISSA Administration - Exam General Appearance: NAD Psychiatric: normal affect, A&O x 3 Hosp A/P (1) Acute diverticulitis Code(s): K57.92 - DVTRCLI OF INTEST, PART UNSP, W/O PERF OR ABSCESS W/O BLEED Status: Acute (2) Sepsis Code(s): A41.9 - SEPSIS, UNSPECIFIED ORGANISM Status: Suspected (3) Hyponatremia Code(s): E87.1 - HYPO-OSMOLALITY AND HYPONATREMIA Status: Acute (4) Rheumatoid arthritis Code(s): M06.9 - RHEUMATOID ARTHRITIS, UNSPECIFIED Status: Chronic - Plan 11/18 Cont IV Zosyn today per GI. Possible dc in AM 11/17 Case discussed with gastroenterology. Will continue IV Zosyn for now. WBC came back to normal today. Continue to advance diet as tolerated. Ambulate. C ontinue Plaquenil, prednisone and other medications as above. 11/16 Gastroenterology input appreciated. Continue IV Zosyn for 2-3 days per GI recommendation. Discontinue IV fluids since patient is tolerating po. We will discontinue subcu Lovenox since patient is ambulating in the hallway change P rotonix to po. Continue Plaquenil with prednisone at home dose. WBC improving. Recheck CBC in a.m.
[2019-11-20] MEDS: Piperacillin/Tazobactam 4.5 GM in Sodium Chloride 0.9% 100 ML IVPB SCH (05:06)
[2019-11-20 07:35] VITALS: TEMP 97.8
[2019-11-20] MEDS: Acetaminophen ER (8hr) 650 MG TAB PO SCH (09:05)
[2019-11-20 09:41] VITALS: BP 134/74
--- NOTE | 2019-11-20 15:56 | DIS ---
DATE OF ADMISSION: 11/16/2019 DATE OF DISCHARGE: 11/20/2019 DISCHARGE DISPOSITION: Home. FOLLOWUP: 1. Follow up with primary care physician, Dr. Li, in 1 week. 2. Follow up with Gastroenterology, Dr. Yang in 2 to 3 weeks. ALLERGIES: NO KNOWN DRUG ALLERGIES. DISCHARGE MEDICATIONS: Augmentin 875 mg twice daily for 10 days. All other home medications were left unchanged. The patient was evaluated on the day of discharge. Denies any new complaints. No new fever or chills reported. Abdominal pain has significantly improved. BRIEF HOSPITAL COURSE: The patient is a 64-year-old female with diverticulosis with recent episode of diverticulitis, presented to the emergency room with abdominal pain. She was recently placed on ciprofloxacin and Flagyl, followed by Augmentin for 1 week. In the emergency room, the CT scan of the abdomen was consistent with acute diverticulitis in the left lower quadrant without evidence of abscess formation. She was started on IV Zosyn with good improvement. Her white cell count improved from 16.5 to 7.0. CRP was 8.9. The patient was evaluated by Gastroenterology Service, Dr. Yang. The GI Service recommended continuation of Augmentin for 10 more days. IV Zosyn was discontinued this morning. The patient has been cleared by Gastroenterology for discharge. FINAL DIAGNOSES: 1. Sepsis due to recurrent acute diverticulitis. 2. Rheumatoid arthritis. 3. Hyponatremia. 4. Elevated inflammatory markers. 5. Anemia suspected due to chronic nutritional deficiency. The patient understands the above plan of care. Job ID: [id number]
== END 2019-11-20 09:56 | disposition home or self-care (01) | DRG 872 ==
LOC: ERS 09:57 → T4-A 13:18
PROVIDERS: ADMIT Internal Medicine; ATTEND Internal Medicine
DX: A41.9 Sepsis, unspecified organism (principal); K57.32 Diverticulitis of large intestine without perforation or abscess without bleeding; E87.1 Hypo-osmolality and hyponatremia; M06.9 Rheumatoid arthritis, unspecified; Z20.828 Contact with and (suspected) exposure to other viral communicable diseases; D53.9 Nutritional anemia, unspecified; Z79.899 Other long term (current) drug therapy; Z79.52 Long term (current) use of systemic steroids
CPT/HCPCS: 36415; 74177; 80048; 80053; 81003; 83690; 83735; 84100; 85025; 86140; 87635; 96365; 96375; 96376; C9113; J2270; J2405; J2543; J3490; J7512; U0003

== ENCOUNTER 2020-01-18 15:09 | Outpatient (CLI) | payer BC ==
--- NOTE | 2020-01-18 16:30 | MMO ---
Bilateral MAMMO Bilat Screen [facility]. CLINICAL HISTORY: Patient is 64 years old and is seen for screening. The patient has no family history of breast cancer. The patient has no personal history of cancer. VIEWS: The views performed were: bilateral craniocaudal with tomosynthesis and bilateral mediolateral oblique with tomosynthesis. FILMS COMPARED: The present examination has been compared to prior imaging studies performed at [facility] on 06/03/2014, 12/12/2015, 11/22/2017 and 12/26/2018. This study has been interpreted with the assistance of computer-aided detection. MAMMOGRAM FINDINGS: The breasts are heterogeneously dense, which could obscure a lesion on mammography. There are benign appearing and vascular calcifications seen in both breasts. There are no suspicious masses, suspicious calcifications, or new areas of architectural distortion. IMPRESSION: THERE IS NO MAMMOGRAPHIC EVIDENCE OF MALIGNANCY. A ROUTINE FOLLOW-UP MAMMOGRAM IN 1 YEAR IS RECOMMENDED. THE RESULTS OF THIS EXAM WERE SENT TO THE PATIENT. ACR BI-RADS Category 2 - Benign finding MAMMOGRAPHY NOTE: 1. A negative mammogram report should not delay a biopsy if a dominant of clinically suspicious mass is present. 2. Approximately 10% to 15% of breast cancers are not detected by mammography. 3. Adenosis and dense breasts may obscure an underlying neoplasm. Reported by: PIEDAD DAVENPORT MD Electonically Signed: [id number]
== END 2020-01-18 15:10 | disposition home or self-care (01) ==
LOC: BICMAMMO 15:09
PROVIDERS: ATTEND Family Medicine
DX: Z12.31 Encounter for screening mammogram for malignant neoplasm of breast (principal)
CPT/HCPCS: 77063; 77067

== ENCOUNTER 2021-04-12 17:57 | Inpatient (IN) | payer BC ==
[~2021-04-12 17:57] MED LIST: Iopamidol 370 76% 100 ML VIAL ONE
[2021-04-12 18:21] LABS: #Lymphocytes 0.8 thou/uL (1.20-3.40); #Monocytes 1.6 thou/uL (0.11-0.59); #Neutrophils 12.1 thou/uL (1.40-6.50); %Basophils 0.2 % (0.0-1.0); %Eosinophils 0.3 % (0.0-10.0); %Lymphocytes 5.3 % (21.0-51.0); %Monocytes 11.2 % (0.0-10.0); %Neutrophils 83.1 % (42.0-75.0); Hemoglobin 11.3 g/dL (12.0-16.0); Mean Corpuscular HGB CONC 32.8 g/dL (32.0-36.0); Mean Corpuscular Hemoglobin 30.1 pg (27.0-31.0); Mean Corpuscular Volume 91.8 fL (78.0-98.0); Mean Platelet Volume 6.5 fL (7.4-10.4); Platelet Count 304 thou/uL (130-400); Red Blood Cell (RBC) Count 3.75 mill/uL (4.20-5.40); White Blood Cell (WBC) Count 14.5 thou/uL (4.8-10.8)
[2021-04-12 18:35] LABS: Bilirubin Negative (Negative); Blood, Urine Trace (Negative); Clarity Turbid (Clear); Glucose, Urine (Dipstick) Normal (Negative); Ketone, Urine Trace mg/dL (Negative); Leukocyte 250 Leu/uL (Negative); Nitrite 2+ (Negative); Protein, Urine (Dipstick) 50 mg/dL (Neg-Trace); RBC/HPF 0-3 HPF (0-3); Specific Gravity, Urine 1.026 (1.002-1.036); Squamous Epithelial None Seen HPF (0-3); Urobilinogen Normal mg/dL (Less than 2); WBC/HPF Greater than 50 HPF (0-3); pH, Urine 5.5 (5.0-9.0)
[2021-04-12 18:36] LABS: Bacteria/HPF 1+ HPF (None Seen)
[2021-04-12 18:51] LABS: ALT (SGPT) 16 U/L (8-55); AST (SGOT) 20 U/L (5-34); Albumin 3.7 g/dL (3.4-4.8); Alkaline Phosphatase 68 U/L (40-110); Anion Gap 14 mmol/L (10-20); BUN (Urea Nitrogen) 10 mg/dL (9.8-20.1); Bilirubin, Total 0.4 mg/dL (0.2-1.2); Calc. Creatinine Clearance 0 mL/min (70-130); Calcium 9.4 mg/dL (7.8-10.44); Carbon Dioxide 22 mmol/L (23-31); Chloride 99 mmol/L (98-107); Globulin 3.4 g/dL (2.4-3.5); Glucose 125 mg/dL (80-115); Potassium 3.5 mmol/L (3.5-5.1); Protein, Total 7.1 g/dL (5.8-8.1); Sodium 131 mmol/L (136-145)
[2021-04-12] MEDS ORDERED: cefTRIAXone\\ROCEPHIN 1 GM VIAL ONE (20:28)
[2021-04-12] MEDS ORDERED: diphenhydrAMINE 50 MG/ML VIAL ONE (20:28)
[2021-04-12] MEDS ORDERED: Metoclopramide HCl 10 MG/2 ML VIAL ONE (20:28)
[2021-04-12] MEDS ORDERED: Ketorolac Tromethamine 30 MG/ML VIAL ONE (20:28)
[2021-04-12] MEDS ORDERED: Morphine 4 MG/ML VIAL ONE (22:21)
[2021-04-12] MEDS ORDERED: Sodium Chloride 0.9% 1,000 ML IV SCH (23:45)
[2021-04-12] MEDS ORDERED: HYDROcodone/Acetaminophen 5/325 mg Tablet PO PRN (23:46)
[2021-04-12] MEDS ORDERED: Ondansetron PF 4 MG/2 ML Vial IVP PRN (23:46)
[2021-04-13 00:01] VITALS: BMI 29.1
[2021-04-13] MEDS: Acetaminophen 325 MG TAB PO PRN ×2 (04:50→10:04)
[2021-04-13 06:39] LABS: #Monocytes 1.5 thou/uL (0.11-0.59); #Neutrophils 9.6 thou/uL (1.40-6.50); %Basophils 0.4 % (0.0-1.0); %Eosinophils 0.1 % (0.0-10.0); %Lymphocytes 8.5 % (21.0-51.0); %Monocytes 12.4 % (0.0-10.0); %Neutrophils 78.6 % (42.0-75.0); Hemoglobin 9.7 g/dL (12.0-16.0); Mean Corpuscular HGB CONC 32.4 g/dL (32.0-36.0); Mean Corpuscular Hemoglobin 29.9 pg (27.0-31.0); Mean Corpuscular Volume 92.1 fL (78.0-98.0); Mean Platelet Volume 7.1 fL (7.4-10.4); Platelet Count 267 thou/uL (130-400); RBC Distribution Width 12.1 % (11.5-14.5); Red Blood Cell (RBC) Count 3.23 mill/uL (4.20-5.40); White Blood Cell (WBC) Count 12.2 thou/uL (4.8-10.8)
[2021-04-13 06:58] LABS: Anion Gap 13 mmol/L (10-20); BUN (Urea Nitrogen) 11 mg/dL (9.8-20.1); Calc. Creatinine Clearance 89 mL/min (70-130); Carbon Dioxide 18 mmol/L (23-31); Chloride 103 mmol/L (98-107); Glucose 106 mg/dL (80-115); Potassium 3.7 mmol/L (3.5-5.1); Sodium 130 mmol/L (136-145)
[2021-04-13] MEDS ORDERED: Loratadine 10 MG TAB PO PRN (08:15)
[2021-04-13] MEDS ORDERED: Senokot S 8.6-50 MG TAB PO PRN (08:15)
[2021-04-13] MEDS ORDERED: Artificial Tear Sol 15 ML BOT EA EYE PRN (08:15)
[2021-04-13] MEDS ORDERED: Sodium Chloride 0.65% Nasal 44 ML BOT EA NARE PRN (08:15)
[2021-04-13] MEDS ORDERED: Loperamide HCl 2 MG CAP PO PRN (08:15)
[2021-04-13] MEDS ORDERED: hydrALAZINE 20 MG/ML VIAL SLOW IVP PRN (08:15)
[2021-04-13] MEDS ORDERED: GUAIFENESIN SF SOLN 200 MG/10 ML UDCUP PO PRN (08:15)
[2021-04-13] MEDS ORDERED: Ondansetron ODT 4 MG TAB PO PRN (08:15)
[2021-04-13] MEDS ORDERED: Calcium Carbonate 500 MG ChewTAB PO PRN (08:15)
[2021-04-13] MEDS ORDERED: Bisacodyl 5 MG TAB PO PRN (08:15)
[2021-04-13] MEDS ORDERED: Hydrocerin (Eucerin) Cream 120 gm Jar TOP PRN (08:15)
[2021-04-13] MEDS: Enoxaparin Sodium 40 MG/0.4 ML SYRINGE SC SCH (08:50)
[2021-04-13] MEDS: Leflunomide 10 mg Tablet PO SCH (08:50)
[2021-04-13] MEDS ORDERED: Hydroxychloroquine Sulfate 200 MG TAB PO SCH (09:00)
[2021-04-13] MEDS ORDERED: Leflunomide 10 mg Tablet PO SCH (09:00)
[2021-04-13] MEDS ORDERED: predniSONE 5 MG TAB PO SCH (09:00)
[2021-04-13] MEDS ORDERED: FLU VACC QS2021-22(65YR UP)/PF 240 MCG/0.7 ML SYRINGE IM ONE (09:00)
[2021-04-13] MEDS: cefTRIAXone\\ROCEPHIN 1 GM in Sodium Chloride 0.9% 100 ML IVPB SCH (20:31)
[2021-04-13] MEDS: Zolpidem Tartrate 5 MG TAB PO PRN (21:36)
[2021-04-14 06:29] LABS: #Eosinphils 0.1 thou/uL (0.0-0.7); #Neutrophils 6.8 thou/uL (1.40-6.50); %Basophils 0.5 % (0.0-1.0); %Eosinophils 0.7 % (0.0-10.0); %Monocytes 11.4 % (0.0-10.0); %Neutrophils 76.4 % (42.0-75.0); Hemoglobin 9.5 g/dL (12.0-16.0); Mean Corpuscular HGB CONC 31.5 g/dL (32.0-36.0); Mean Corpuscular Hemoglobin 29.5 pg (27.0-31.0); Mean Corpuscular Volume 93.9 fL (78.0-98.0); Mean Platelet Volume 7.1 fL (7.4-10.4); Platelet Count 295 thou/uL (130-400); RBC Distribution Width 12.1 % (11.5-14.5); Red Blood Cell (RBC) Count 3.21 mill/uL (4.20-5.40); White Blood Cell (WBC) Count 8.9 thou/uL (4.8-10.8)
[2021-04-14 06:46] LABS: Anion Gap 11 mmol/L (10-20); BUN (Urea Nitrogen) 8 mg/dL (9.8-20.1); Calc. Creatinine Clearance 89 mL/min (70-130); Carbon Dioxide 22 mmol/L (23-31); Chloride 103 mmol/L (98-107); Glucose 107 mg/dL (80-115); Sodium 133 mmol/L (136-145)
[2021-04-14 06:52] LABS: Potassium 2.9 mmol/L (3.5-5.1)
[2021-04-14] MEDS ORDERED: predniSONE 5 MG TAB PO SCH (08:00)
[2021-04-14] MEDS ORDERED: Potassium Chloride 20 MEQ TAB PO SCH (09:15)
[2021-04-14] MEDS: Enoxaparin Sodium 40 MG/0.4 ML SYRINGE SC SCH (10:01)
[2021-04-14] MEDS: Leflunomide 10 mg Tablet PO SCH (10:01)
[2021-04-14] MEDS: Acetaminophen 325 MG TAB PO PRN ×2 (10:02→18:18)
[2021-04-14] MEDS: cefTRIAXone\\ROCEPHIN 1 GM in Sodium Chloride 0.9% 100 ML IVPB SCH (20:14)
[2021-04-14] MEDS: Zolpidem Tartrate 5 MG TAB PO PRN (20:14)
[2021-04-14 21:20] VITALS: BP 135/81; TEMP 97.8
[2021-04-15 05:24] LABS: #Eosinphils 0.1 thou/uL (0.0-0.7); #Lymphocytes 1.6 thou/uL (1.20-3.40); #Monocytes 1.1 thou/uL (0.11-0.59); %Basophils 0.3 % (0.0-1.0); %Eosinophils 0.8 % (0.0-10.0); %Lymphocytes 20.1 % (21.0-51.0); %Monocytes 14.6 % (0.0-10.0); %Neutrophils 64.2 % (42.0-75.0); Hemoglobin 9.7 g/dL (12.0-16.0); Mean Corpuscular HGB CONC 33.4 g/dL (32.0-36.0); Mean Corpuscular Hemoglobin 30.9 pg (27.0-31.0); Mean Corpuscular Volume 92.3 fL (78.0-98.0); Mean Platelet Volume 7.1 fL (7.4-10.4); Platelet Count 298 thou/uL (130-400); Red Blood Cell (RBC) Count 3.16 mill/uL (4.20-5.40); White Blood Cell (WBC) Count 7.7 thou/uL (4.8-10.8)
[2021-04-15 05:44] LABS: Anion Gap 6 mmol/L (10-20); BUN (Urea Nitrogen) 6 mg/dL (9.8-20.1); Calc. Creatinine Clearance 93 mL/min (70-130); Calcium 8.4 mg/dL (7.8-10.44); Carbon Dioxide 29 mmol/L (23-31); Chloride 104 mmol/L (98-107); Glucose 102 mg/dL (80-115); Potassium 3.3 mmol/L (3.5-5.1); Sodium 136 mmol/L (136-145)
== END 2021-04-15 07:15 | disposition home or self-care (01) | DRG 872 ==
LOC: ERS 17:57 → T4-B 22:11 → OBSVTOIN 04-13 08:14
PROVIDERS: ADMIT Internal Medicine; ATTEND Internal Medicine
DX: A41.9 Sepsis, unspecified organism (principal); N10 Acute pyelonephritis; E87.1 Hypo-osmolality and hyponatremia; M06.9 Rheumatoid arthritis, unspecified; Z79.899 Other long term (current) drug therapy; Z79.52 Long term (current) use of systemic steroids; Z90.49 Acquired absence of other specified parts of digestive tract; Z80.9 Family history of malignant neoplasm, unspecified
CPT/HCPCS: 36415; 74177; 80048; 80053; 81003; 81015; 83690; 85025; 87077; 87086; 87186; 96375; G0378; J0696; J1200; J1650; J1885; J2270; J2405; J2765; J3490; J7050; J7512; Q9967

== ENCOUNTER 2021-05-06 22:02 | Emergency (ER) | payer BC ==
[~2021-05-06 22:02] MED LIST changes: -Iopamidol 370 76% 100 ML VIAL ONE; +Iopamidol-370 76% 500 ML 1 ML ONE
[2021-05-06] MEDS ORDERED: Morphine 4 MG/ML VIAL ONE (22:55)
[2021-05-06] MEDS ORDERED: Ondansetron PF 4 MG/2 ML Vial ONE (22:55)
[2021-05-06 23:28] LABS: Hemoglobin 11.4 g/dL (12.0-16.0); Mean Corpuscular HGB CONC 33.4 g/dL (32.0-36.0); Mean Platelet Volume 7.3 fL (7.4-10.4); Platelet Count 279 thou/uL (130-400); RBC Distribution Width 12.9 % (11.5-14.5); Red Blood Cell (RBC) Count 3.68 mill/uL (4.20-5.40); White Blood Cell (WBC) Count 9.7 thou/uL (4.8-10.8)
[2021-05-06 23:44] LABS: Bilirubin Negative (Negative); Blood, Urine Negative (Negative); Clarity Clear (Clear); Glucose, Urine (Dipstick) Normal (Negative); Ketone, Urine Trace mg/dL (Negative); Leukocyte Negative Leu/uL (Negative); Mucous/LPF Rare LPF (<2+); Nitrite 2+ (Negative); Protein, Urine (Dipstick) 10 mg/dL (Neg-Trace); RBC/HPF 0-3 HPF (0-3); Specific Gravity, Urine 1.023 (1.002-1.036); Squamous Epithelial None Seen HPF (0-3); Urobilinogen Normal mg/dL (Less than 2); WBC/HPF 0-3 HPF (0-3); pH, Urine 5.5 (5.0-9.0)
[2021-05-06 23:49] LABS: ALT (SGPT) 12 U/L (8-55); AST (SGOT) 15 U/L (5-34); Albumin 3.9 g/dL (3.4-4.8); Alkaline Phosphatase 60 U/L (40-110); Anion Gap 16 mmol/L (10-20); BUN (Urea Nitrogen) 13 mg/dL (9.8-20.1); Bilirubin, Total 0.4 mg/dL (0.2-1.2); Calc. Creatinine Clearance 0 mL/min (70-130); Carbon Dioxide 19 mmol/L (23-31); Chloride 103 mmol/L (98-107); Globulin 3.2 g/dL (2.4-3.5); Glucose 95 mg/dL (80-115); Potassium 3.6 mmol/L (3.5-5.1); Protein, Total 7.1 g/dL (5.8-8.1); Sodium 134 mmol/L (136-145)
[2021-05-06 23:52] LABS: Band 4 % (5-11); Eosinophils 1 % (0-10); Lymphocytes 15 % (21-51); MDiff Complete? YES; Monocytes 12 % (0-10); Neutrophil 66 % (42-75); Platelet Morphology Comment Appears Adequate; RBC Morphology Normal
[2021-05-06 23:57] LABS: Bacteria/HPF 3+ HPF (None Seen)
[2021-05-07] MEDS ORDERED: cefTRIAXone\\ROCEPHIN 1 GM VIAL ONE (00:16)
== END 2021-05-07 01:00 | disposition home or self-care (01) ==
LOC: ERS 22:02
DX: N39.0 Urinary tract infection, site not specified (principal); K57.32 Diverticulitis of large intestine without perforation or abscess without bleeding; M06.9 Rheumatoid arthritis, unspecified
CPT/HCPCS: 36415; 74177; 80053; 81003; 81015; 85025; 87077; 87086; 87186; 96365; 96375; J0696; J2270; J2405; Q9967

== ENCOUNTER 2021-06-05 09:05 | Outpatient (CLI) | payer BC | END 2021-06-05 09:06 | disposition home or self-care (01) | LOC: BICMAMMO 09:05 | PROVIDERS: ATTEND Family Medicine | DX: Z12.31 Encounter for screening mammogram for malignant neoplasm of breast (principal) | CPT/HCPCS: 77063; 77067 ==

== ENCOUNTER 2021-06-15 08:25 | Outpatient (CLI) | payer BC | END 2021-06-15 08:26 | disposition home or self-care (01) | LOC: BICRAD 08:25 | PROVIDERS: ATTEND Internal Medicine Rheumatology | DX: M54.2 Cervicalgia (principal); M47.812 Spondylosis without myelopathy or radiculopathy, cervical region | CPT/HCPCS: 72052 ==

== ENCOUNTER 2021-06-27 10:18 | Outpatient (CLI) | payer BC | END 2021-06-27 10:19 | disposition home or self-care (01) | LOC: BICRAD 10:18 | PROVIDERS: ATTEND Internal Medicine Rheumatology | DX: M25.551 Pain in right hip (principal); M25.552 Pain in left hip; M54.50 Low back pain, unspecified; M47.816 Spondylosis without myelopathy or radiculopathy, lumbar region; M16.0 Bilateral primary osteoarthritis of hip | CPT/HCPCS: 72110; 73523 ==

== ENCOUNTER 2022-05-18 12:23 | Outpatient (CLI) | payer BC | END 2022-05-18 12:24 | disposition home or self-care (01) | LOC: TBSIIMAG 12:23 | PROVIDERS: ATTEND Neurological Surgery | DX: M47.816 Spondylosis without myelopathy or radiculopathy, lumbar region (principal); M47.812 Spondylosis without myelopathy or radiculopathy, cervical region; M50.01 Cervical disc disorder with myelopathy, high cervical region; M51.34 Other intervertebral disc degeneration, thoracic region; M51.35 Other intervertebral disc degeneration, thoracolumbar region; M51.24 Other intervertebral disc displacement, thoracic region; M47.815 Spondylosis without myelopathy or radiculopathy, thoracolumbar region; M43.12 Spondylolisthesis, cervical region | CPT/HCPCS: 72141; 72148 ==

== ENCOUNTER 2022-09-09 08:21 | Observation (INO) | payer BC ==
[2022-09-09 08:50] LABS: Bilirubin Negative (Negative); Blood, Urine Negative (Negative); CAUTI Indications for Culture Immunosuppressed; Clarity Clear (Clear); Glucose, Urine (Dipstick) Normal (Negative); Ketone, Urine Negative (Negative); Leukocyte 500 Leu/uL (Negative); Nitrite Negative (Negative); Protein, Urine (Dipstick) Negative (Neg-Trace); RBC/HPF 0-3 HPF (0-3); Squamous Epithelial 0-3 HPF (0-3); Urobilinogen Normal mg/dL (Less than 2); WBC/HPF 21-50 HPF (0-3); pH, Urine 6.5 (5.0-9.0)
[2022-09-09 08:52] LABS: #Basophils 0.1 thou/uL (0.0-0.2); #Eosinphils 0.3 thou/uL (0.0-0.7); #Monocytes 0.8 thou/uL (0.11-0.59); #Neutrophils 4.6 thou/uL (1.40-6.50); %Eosinophils 5.4 % (0.0-10.0); %Lymphocytes 5.7 % (21.0-51.0); %Monocytes 12.9 % (0.0-10.0); %Neutrophils 74.2 % (42.0-75.0); Hemoglobin 12.1 g/dL (12.0-16.0); Mean Corpuscular HGB CONC 32.4 g/dL (32.0-36.0); Mean Corpuscular Hemoglobin 29.5 pg (27.0-31.0); Mean Platelet Volume 9.3 fL (7.4-10.4); Platelet Count 287 10x3/uL (130-400); RBC Distribution Width 13.2 % (11.5-14.5); White Blood Cell (WBC) Count 6.1 10x3/uL (4.8-10.8)
[2022-09-09 09:00] LABS: Urine Culture Reflex Yes Yes
[2022-09-09 09:01] LABS: Bacteria/HPF None Seen HPF (None Seen)
[2022-09-09] MEDS ORDERED: Dexamethasone 10 MG/ML VIAL ONE (09:11)
[2022-09-09] MEDS ORDERED: Ketorolac Tromethamine 30 MG/ML VIAL ONE (09:11)
[2022-09-09 09:15] LABS: ALT (SGPT) 426 U/L (8-55); AST (SGOT) 418 U/L (5-34); Albumin 4.1 g/dL (3.4-4.8); Alkaline Phosphatase 286 U/L (40-110); Anion Gap 14 mmol/L (10-20); BUN (Urea Nitrogen) 6 mg/dL (9.8-20.1); Bilirubin, Total 0.5 mg/dL (0.2-1.2); Calc. Creatinine Clearance 0 mL/min (70-130); Calcium 9.4 mg/dL (7.8-10.44); Carbon Dioxide 23 mmol/L (23-31); Chloride 96 mmol/L (98-107); Estimated GFR 82; Glucose 94 mg/dL (80-115); Potassium 4.1 mmol/L (3.5-5.1); Protein, Total 7.1 g/dL (5.8-8.1); Sodium 129 mmol/L (136-145)
[2022-09-09] MEDS ORDERED: cefTRIAXone (ROCEPHIN) 1 GM VIAL ONE (10:10)
[2022-09-09] MEDS ORDERED: Acetaminophen 325 MG TAB PO PRN (11:49)
[2022-09-09] MEDS ORDERED: traMADol HCl 50 MG TAB PO PRN (11:53)
[2022-09-09 14:02] VITALS: BMI 27.8
[2022-09-09] MEDS: Sodium Chloride 0.9% 1,000 ML IV SCH ×3 (14:48→21:09)
[2022-09-09] MEDS: Hydroxychloroquine Sulfate 200 MG TAB PO SCH (17:00)
[2022-09-09] MEDS: Ketorolac Tromethamine 30 MG/ML VIAL IVP PRN ×2 (17:01→23:18)
[2022-09-09 18:46] LABS: ALT (SGPT) 357 U/L (8-55); AST (SGOT) 274 U/L (5-34); Albumin 3.6 g/dL (3.4-4.8); Alkaline Phosphatase 257 U/L (40-110); Anion Gap 14 mmol/L (10-20); BUN (Urea Nitrogen) 10 mg/dL (9.8-20.1); Bilirubin, Total 0.3 mg/dL (0.2-1.2); Calc. Creatinine Clearance 63 mL/min (70-130); Calcium 8.4 mg/dL (7.8-10.44); Carbon Dioxide 17 mmol/L (23-31); Chloride 102 mmol/L (98-107); Estimated GFR 67; Globulin 2.7 g/dL (2.4-3.5); Glucose 149 mg/dL (80-115); Protein, Total 6.3 g/dL (5.8-8.1); Sodium 129 mmol/L (136-145)
[2022-09-10] MEDS: Sodium Chloride 0.9% 1,000 ML IV SCH (00:05)
[2022-09-10 07:09] LABS: #Basophils 0.1 thou/uL (0.0-0.2); #Eosinphils 0.4 thou/uL (0.0-0.7); #Monocytes 0.9 thou/uL (0.11-0.59); #Neutrophils 4.9 thou/uL (1.40-6.50); %Basophils 0.9 % (0.0-1.0); %Eosinophils 5.1 % (0.0-10.0); %Lymphocytes 11.1 % (21.0-51.0); %Monocytes 13.1 % (0.0-10.0); %Neutrophils 69.1 % (42.0-75.0); Hemoglobin 10.7 g/dL (12.0-16.0); Mean Corpuscular HGB CONC 32.4 g/dL (32.0-36.0); Mean Corpuscular Hemoglobin 29.6 pg (27.0-31.0); Mean Corpuscular Volume 91.2 fl (78.0-98.0); Mean Platelet Volume 9.8 fL (7.4-10.4); Platelet Count 260 10x3/uL (130-400); RBC Distribution Width 13.2 % (11.5-14.5); Red Blood Cell (RBC) Count 3.62 mill/uL (4.20-5.40)
[2022-09-10 07:33] LABS: Anion Gap 14 mmol/L (10-20); BUN (Urea Nitrogen) 10 mg/dL (9.8-20.1); Calc. Creatinine Clearance 85 mL/min (70-130); Calcium 8.5 mg/dL (7.8-10.44); Carbon Dioxide 17 mmol/L (23-31); Chloride 107 mmol/L (98-107); Estimated GFR 94; Glucose 88 mg/dL (80-115); Potassium 3.9 mmol/L (3.5-5.1); Sodium 134 mmol/L (136-145)
[2022-09-10] MEDS ORDERED: ARMODAFINIL 50 MG PO SCH (08:00)
[2022-09-10] MEDS ORDERED: Folic Acid 1 MG TAB PO SCH (08:00)
[2022-09-10] MEDS ORDERED: predniSONE 5 MG TAB PO SCH (08:00)
[2022-09-10] MEDS: Hydroxychloroquine Sulfate 200 MG TAB PO SCH (08:37)
[2022-09-10] MEDS ORDERED: Azithromycin 250 MG TAB PO SCH (09:00)
[2022-09-10] MEDS ORDERED: Ethambutol HCl 400 MG TAB PO SCH (09:00)
[2022-09-10] MEDS ORDERED: cefTRIAXone\\ROCEPHIN 1 GM in Sodium Chloride 0.9% 100 ML IVPB SCH (11:00)
[2022-09-10 12:32] VITALS: BP 143/79; TEMP 98.2
== END 2022-09-10 15:17 | disposition home or self-care (01) ==
LOC: ERS 08:21 → SUATTDRO 08:21 → T4-A 11:44
PROVIDERS: ADMIT Internal Medicine; ATTEND Internal Medicine
DX: N39.0 Urinary tract infection, site not specified (principal); A31.2 Disseminated mycobacterium avium-intracellulare complex (DMAC); M06.9 Rheumatoid arthritis, unspecified; E87.1 Hypo-osmolality and hyponatremia; R74.01 Elevation of levels of liver transaminase levels; Z90.49 Acquired absence of other specified parts of digestive tract; Z79.891 Long term (current) use of opiate analgesic; Z79.52 Long term (current) use of systemic steroids; Z79.899 Other long term (current) drug therapy
CPT/HCPCS: 36415; 76705; 80048; 80053; 81001; 82550; 85025; 85652; 86140; 87086; 96361; 96374; 96375; 96376; G0378; J0696; J1100; J1885; J3490; J7050; J7512